=== PATIENT | male | born 1980 | race Caucasian/White ===

== ENCOUNTER 2025-05-02 07:43 | Emergency (ER) | payer BC ==
[~2025-05-02] VITALS: Ht 177.8 cm; Wt 90.9 kg
--- NOTE | 2025-05-02 09:20 | Physician Documentation ---
History of Present Illness ~ Chief Complaint: Foreign body Stated Complaint: FISH HOOK STUCK IN FINGER Time Seen by MD: 09:07 HPI 44-year-old male presents with concerns of over having a fishhook imbedded in his right hand. States he has had hook embedded since yesterday. Unfortunately he says that he messed with a an ultimately broke off the tip leaving the hook imbedded in his hand just distal to his right thumb Day of Onset: May 02, 2025 Medication Reconciliation Allergies: Coded Allergies: No Known Allergies (Unverified , 05/02/25) Scheduled Sulfamethoxazole/Trimethoprim (Bactrim Ds Tablet), 1 TAB PO Q12H Review of Systems All Other Systems at this time: Reviewed and Negative ROS As stated above in the HPI, otherwise all systems are reviewed and negative. Physical Exam Vital Signs: Temperature: 97.7, Heart Rate: 70, Respiratory Rate: 18, BP: 124/97, Pulse Oximetry: 100, Weight: 90.910 Oxygen Flow Rate: 0 Physical Exam General: Alert, no apparent distress. HEENT: PERRL, EOMI, no injection, moist mucous membranes. Extremities: Normal range of motion, two punctures proximal right thumb Neurologic: Oriented x4. Psychiatric: Normal mood and affect. Skin: Normal color, warm and dry. No edema, no ecchymosis. Progress Results/Orders Results/Orders Orders - SONIDO QUINTANILLA [employer]LYST Hand, Complete (3vw Min) (05/02/25 09:09) Completed Orders - SONIDO QUINTANILLA [employer] ANALY[employer] Hand, Complete (3vw Min) (05/02/25 09:09) Vital Signs 05/02/25 05/02/25 05/02/25 07:45 08:50 10:00 Temp 97.7 97.7 Pulse 71 70 75 Resp 15 18 18 B/P (MAP) 127/85 124/97 (106) 133/89 Pulse Ox 98 100 100 O2 Flow Rate 0 0 Medical Decision Making Findings I spoke to the hand surgeon Dr. Jamison.. He states that this is traditionally an outpatient hand surgeon procedure. He graciously accepted to see this patient in his office. Start him on antibiotics and make sure he is up-to-date on tetanus Departure Disposition: 01 HOME / SELF CARE / HOMELESS Impression: Primary Impression: Acute foreign body of hand Condition: Stable Discharge Instructions: Foreign Body Additional Instructions: Take the antibiotics as prescribed if you begin to have redness drainage or increased pain and swelling. Should contact Dr. Jamison fabiano Referrals: NO PRIMARY CARE PROVIDER (PCP) VICTOR M JAMISON Jr., MD Prescriptions Sulfamethoxazole/Trimethoprim (Bactrim Ds Tablet) 800 Mg-160 Mg Tablet 1 TAB PO Q12H for 10 Days, #20 TAB Prov: SONIDO QUINTANILLA NP 05/02/25 Signature Scribe Signature: d Attestation: Scribed for Sonido Quintanilla Director Account Management by Sonido Quintanilla - JACOBY . 05/02/25 16:29 SONIDO QUINTANILLA NP May 02, 2025 09:20
--- NOTE | 2025-05-02 09:33 | RADIOLOGY REPORT ---
EXAM: DI HAND, COMPLETE (3VW MIN) CLINICAL INDICATION: fish hook RIGHT HAND TECHNIQUE: DI HAND, COMPLETE (3VW MIN) Comparison: None FINDINGS/IMPRESSION: There is no evidence of acute fracture or dislocation. The visualized joint space is well maintained. The alignment is anatomical. Radiopaque foreign body within the subcutaneous tissue between the 1st 2 digits measuring 5 mm. This represents a fishhook.
[2025-05-02] MEDS ORDERED: SULF1TAB49 PO (09:48)
[2025-05-02 10:00] VITALS: BP 133/89; PULSE 75; RESP 18; TEMP 97.7; O2SAT 100
== END 2025-05-02 09:58 | disposition home or self-care (01) ==
LOC: ER 07:44
DX: S61.441A Puncture wound with foreign body of right hand, initial encounter (principal); Z79.899 Other long term (current) drug therapy; W45.8XXA Other foreign body or object entering through skin, initial encounter; Y93.89 Activity, other specified; Y92.89 Other specified places as the place of occurrence of the external cause; Y99.8 Other external cause status
CPT/HCPCS: 73130; 99283; 99284